=== PATIENT | female | born 1960 | race Caucasian/White ===

== ENCOUNTER → 2016-09-21 | Outpatient (CLI) | payer BC ==
--- NOTE | 2016-09-21 15:30 | US ---
EXAMINATION TYPE: US thyroid st tissue head/neck DATE OF EXAM: 09/21/2016 3:18 PM COMPARISON: EXAMINATION TYPE: US thyroid st tissue head/neck DATE OF EXAM: 09/21/2016 3:18 PM COMPARISON: NONE CLINICAL HISTORY: Neck Nodule E03.9. Patient feels lump superior to thyroid. No mass or obvious abnormality at this area. Targeted ultrasound area of palpable abnormality midline upper neck above thyroid gland show shadowin g from cricoid cartilage. Skin and subcutaneous tissues superficial to this are identified. No worris ome solid or cystic mass or fluid collection is seen on images saved. IMPRESSION: As above
== END | disposition home or self-care (01) ==
LOC: RADUSWWP 14:49
PROVIDERS: ATTEND Family Medicine
DX: E03.9 Hypothyroidism, unspecified (principal)
CPT/HCPCS: 76536

== ENCOUNTER → 2016-10-11 | Outpatient (CLI) | payer BC ==
--- NOTE | 2016-10-11 11:35 | FL ---
EXAMINATION TYPE: FL barium swallow DATE OF EXAM ORDERED: 10/11/2016 11:04 AM HISTORY: Dysphasia. COMPARISON: None. FINDINGS: The patient swallowed barium of these. The esophagus distended normally with air and bariu m without evidence of obstructing or constricting disease. The mucosal pattern throughout the esophag us is normal. There is no significant hiatal hernia or reflux. Limited views of the stomach are unrem arkable. IMPRESSION: NORMAL ESOPHAGRAM.
== END | disposition home or self-care (01) ==
LOC: RADFLWHC 10:08
PROVIDERS: ATTEND Otolaryngology
DX: R13.10 Dysphagia, unspecified (principal)
CPT/HCPCS: 74220

== ENCOUNTER 2017-11-04 23:23 | Emergency (ER) | payer BC ==
[2017-11-04 23:39] LABS: Glucose,Whole Blood 110 mg/dL (75-99)
[2017-11-04] MEDS ORDERED: SODIUM CHLORIDE 0.9% 1,000 ML IV STA ×2 (23:42)
--- NOTE | 2017-11-04 23:44 | ED ---
General Adult HPI - General Chief complaint: Neuro Symptoms/Deficit Stated complaint: Poss TIA Source: patient, family, RN notes reviewed, old records reviewed Mode of arrival: wheelchair Limitations: no limitations - History of Present Illness Initial comments: This is a 57-year-old female the ER for evaluation today. Patient since today for evaluation regards to neurological complaint. Patient has no history of high blood pressure normal cholesterol no diabetes, nonsmoker no prior history of valvular heart or neurological disease. Patient states she has had prior evaluation regarding hard and chest pain, she's had stress test, echocardiogram and carotid Dopplers which were all normal. Patient has no recent travel history no sick contacts occasionally gets migraine headaches but states she has no headache currently. No trauma. Patient states about a month ago as well as tonight patient had some peripheral vision loss or blurriness as well as some slurring of speech or difficulty with speech. The symptoms tonight have resolved. And earlier when she had them last month said resolved without difficulty. Patient currently has no complaints is asymptomatic - Related Data Allergies Allergy/AdvReac Type Severity Reaction Status Date / Time erythromycin base Allergy Rash/Hives Verified 11/04/17 23:34 levofloxacin [From Levaquin] Allergy Hallucinati Verified 11/04/17 23:34 ons Tetanus Vaccines and Toxoid Allergy Unknown Verified 11/04/17 23:34 Childhood Review of Systems ROS Statement: Those systems with pertinent positive or pertinent negative responses have been documented in the HPI. ROS Other: All systems not noted in ROS Statement are negative. Past Medical History Additional Past Medical History / Comment(s): bladder History of Any Multi-Drug Resistant Organisms: None Reported Past Surgical History: Hysterectomy, Orthopedic Surgery Additional Past Surgical History / Comment(s): sinus, foot, bladder suspension Past Psychological History: No Psychological Hx Reported Smoking Status: Never smoker Past Alcohol Use History: Rare Past Drug Use History: None Reported General Exam - General Exam Comments Initial Comments: NIH of 0 Limitations: no limitations General appearance: alert, in no apparent distress Head exam: Present: atraumatic, normocephalic, normal inspection Eye exam: Present: normal appearance, PERRL, EOMI. Absent: scleral icterus, conjunctival injection, periorbital swelling ENT exam: Present: normal exam, mucous membranes moist Neck exam: Present: normal inspection. Absent: tenderness, meningismus, lymphadenopathy Respiratory exam: Present: normal lung sounds bilaterally. Absent: respiratory distress, wheezes, rales, rhonchi, stridor Cardiovascular Exam: Present: regular rate, normal rhythm, normal heart sounds. Absent: systolic murmur, diastolic murmur, rubs, gallop, clicks GI/Abdominal exam: Present: soft, normal bowel sounds. Absent: distended, tenderness, guarding, rebound, rigid Extremities exam: Present: normal inspection, full ROM, normal capillary refill. Absent: tenderness, pedal edema, joint swelling, calf tenderness Back exam: Present: normal inspection Neurological exam: Present: alert, oriented X3, CN II-XII intact Psychiatric exam: Present: normal affect, normal mood Skin exam: Present: warm, dry, intact, normal color. Absent: rash Course Vital Signs 11/04/17 11/04/17 11/05/17 23:28 23:55 00:32 Temperature 98.5 F 99.1 F Pulse Rate 100 95 86 Respiratory 22 18 18 Rate Blood Pressure 163/105 137/55 139/81 O2 Sat by Pulse 100 99 99 Oximetry - Reevaluation(s) Reevaluation #1: 11/04/17 00:43 Patient remains asymptomatic EKG Findings - EKG Comments: EKG Findings:: EKG shows normal sinus rhythm at 97, AL 180, QRS 110, QTc 46 Medical Decision Making - Medical Decision Making 57 female the ER for evaluation. Patient resents today for evaluation regarding TIA like symptoms. Patient is low risk, CT negative. Patient will start taking aspirin discharged home - Lab Data Result diagrams: 11/04/17 23:48 11/04/17 23:48 Lab Results 11/04/17 11/04/17 11/04/17 Range/Units 23:38 23:48 23:48 WBC 9.2 (3.8-10.6) k/uL RBC 5.14 (3.80-5.40) m/uL Hgb 15.4 (11.4-16.0) gm/dL Hct 44.3 (34.0-46.0) % MCV 86.1 (80.0-100.0) fL MCH 29.9 (25.0-35.0) pg MCHC 34.8 (31.0-37.0) g/dL RDW 13.0 (11.5-15.5) % Plt Count 208 (150-450) k/uL Neutrophils % 67 % Lymphocytes % 24 % Monocytes % 5 % Eosinophils % 2 % Basophils % 1 % Neutrophils # 6.2 (1.3-7.7) k/uL Lymphocytes # 2.2 (1.0-4.8) k/uL Monocytes # 0.5 (0-1.0) k/uL Eosinophils # 0.2 (0-0.7) k/uL Basophils # 0.1 (0-0.2) k/uL PT (9.0-12.0) sec INR (<1.2) APTT (22.0-30.0) sec Sodium (137-145) mmol/L Potassium (3.5-5.1) mmol/L Chloride (98-107) mmol/L Carbon Dioxide (22-30) mmol/L Anion Gap mmol/L BUN (7-17) mg/dL Creatinine (0.52-1.04) mg/dL Est GFR (CKD-EPI)AfAm (>60 ml/min/1.73 sqM) Est GFR (CKD-EPI)NonAf (>60 ml/min/1.73 sqM) Glucose (74-99) mg/dL POC Glucose (mg/dL) 110 H (75-99) mg/dL POC Glu Rn Employee Health ID Chesterundanny, Rossy Calcium (8.4-10.2) mg/dL Phosphorus (2.5-4.5) mg/dL Magnesium (1.6-2.3) mg/dL Total Bilirubin (0.2-1.3) mg/dL AST (14-36) U/L ALT (9-52) U/L Alkaline Phosphatase (38-126) U/L Total Creatine Kinase 59 (30-135) U/L CK-MB (CK-2) 0.5 (0.0-2.4) ng/mL CK-MB (CK-2) Rel Index 0.8 Troponin I <0.012 (0.000-0.034) ng/mL Total Protein (6.3-8.2) g/dL Albumin (3.5-5.0) g/dL Serum Alcohol mg/dL 11/04/17 11/04/17 Range/Units 23:48 23:48 WBC (3.8-10.6) k/uL RBC (3.80-5.40) m/uL Hgb (11.4-16.0) gm/dL Hct (34.0-46.0) % MCV (80.0-100.0) fL MCH (25.0-35.0) pg MCHC (31.0-37.0) g/dL RDW (11.5-15.5) % Plt Count (150-450) k/uL Neutrophils % % Lymphocytes % % Monocytes % % Eosinophils % % Basophils % % Neutrophils # (1.3-7.7) k/uL Lymphocytes # (1.0-4.8) k/uL Monocytes # (0-1.0) k/uL Eosinophils # (0-0.7) k/uL Basophils # (0-0.2) k/uL PT 10.4 (9.0-12.0) sec INR 1.1 (<1.2) APTT 27.8 (22.0-30.0) sec Sodium 138 (137-145) mmol/L Potassium 3.8 (3.5-5.1) mmol/L Chloride 102 (98-107) mmol/L Carbon Dioxide 23 (22-30) mmol/L Anion Gap 13 mmol/L BUN 18 H (7-17) mg/dL Creatinine 0.80 (0.52-1.04) mg/dL Est GFR (CKD-EPI)AfAm >90 (>60 ml/min/1.73 sqM) Est GFR (CKD-EPI)NonAf 83 (>60 ml/min/1.73 sqM) Glucose 105 H (74-99) mg/dL POC Glucose (mg/dL) (75-99) mg/dL POC Glu Rn Employee Health ID Calcium 9.6 (8.4-10.2) mg/dL Phosphorus 3.3 (2.5-4.5) mg/dL Magnesium 1.9 (1.6-2.3) mg/dL Total Bilirubin 0.3 (0.2-1.3) mg/dL AST 22 (14-36) U/L ALT 26 (9-52) U/L Alkaline Phosphatase 75 (38-126) U/L Total Creatine Kinase (30-135) U/L CK-MB (CK-2) (0.0-2.4) ng/mL CK-MB (CK-2) Rel Index Troponin I (0.000-0.034) ng/mL Total Protein 7.1 (6.3-8.2) g/dL Albumin 4.6 (3.5-5.0) g/dL Serum Alcohol <10 mg/dL - Radiology Data Radiology results: report reviewed (CT brain CTA negative), image reviewed Disposition Clinical Impression: Transient cerebral ischemia Disposition: HOME SELF-CARE Condition: Good Instructions: Transient Ischemic Attack (ED) Is patient prescribed a controlled substance at d/c from ED?: No Referrals: Hebert Gonzalez DO [Primary Care Provider] - 1-2 days Ailyn Reyes MD [STAFF PHYSICIAN] - 1-2 days
[2017-11-04 23:59] LABS: Basophils # (A) 0.1 k/uL (0-0.2); Basophils % (A) 1 %; Eosinophils # (A) 0.2 k/uL (0-0.7); Eosinophils % (A) 2 %; HCT 44.3 % (34.0-46.0); HGB 15.4 gm/dL (11.4-16.0); Lymphocytes # (A) 2.2 k/uL (1.0-4.8); Lymphocytes % (A) 24 %; MCH 29.9 pg (25.0-35.0); MCHC 34.8 g/dL (31.0-37.0); MCV 86.1 fL (80.0-100.0); Mean Platelet Volume 7.3; Monocytes # (A) 0.5 k/uL (0-1.0); Monocytes % (A) 5 %; Neutrophils # (A) 6.2 k/uL (1.3-7.7); Neutrophils % (A) 67 %; Platelet Count 208 k/uL (150-450); RBC 5.14 m/uL (3.80-5.40); WBC 9.2 k/uL (3.8-10.6)
[2017-11-05 00:08] LABS: INR 1.1 (<1.2); Partial Thromboplastin Time 27.8 sec (22.0-30.0); Prothrombin Time 10.4 sec (9.0-12.0)
[2017-11-05 00:09] VITALS: RESP 18
[2017-11-05 00:15] LABS: ALT 26 U/L (9-52); AST 22 U/L (14-36); Albumin 4.6 g/dL (3.5-5.0); Alcohol <10 mg/dL; Alkaline Phosphatase 75 U/L (38-126); Anion Gap 13 mmol/L; Blood Urea Nitrogen 18 mg/dL (7-17); Calcium 9.6 mg/dL (8.4-10.2); Carbon Dioxide 23 mmol/L (22-30); Chloride 102 mmol/L (98-107); Glucose 105 mg/dL (74-99); Magnesium 1.9 mg/dL (1.6-2.3); Phosphorus 3.3 mg/dL (2.5-4.5); Potassium 3.8 mmol/L (3.5-5.1); Sodium 138 mmol/L (137-145); Total Bilirubin 0.3 mg/dL (0.2-1.3); Total Protein 7.1 g/dL (6.3-8.2)
[2017-11-05 00:29] LABS: Creatine Kinase 59 U/L (30-135)
[2017-11-05 00:34] VITALS: BP 139/81; PULSE 86; TEMP 99.1
--- NOTE | 2017-11-05 00:35 | CT ---
EXAMINATION TYPE: CT brain wo con for TPA DATE OF EXAM: 11/05/2017 COMPARISON: NONE HISTORY: Blurry vision, Speech impairment CT DLP: 1365.90 mGycm Automated exposure control for dose reduction was used. FINDINGS: Multiple axial sections were obtained of the brain with no contrast. Ventricles and sulci appear norm al. There is no mass effect nor midline shift. There is no sign of intracranial hemorrhage. The jose rium is intact. IMPRESSION: NEGATIVE CT SCAN OF THE BRAIN.
[2017-11-05 00:41] LABS: Creatine Kinase MB 0.5 ng/mL (0.0-2.4); Troponin I <0.012 ng/mL (0.000-0.034)
--- NOTE | 2017-11-05 00:54 | CT ---
EXAMINATION TYPE: CT angio head neck DATE OF EXAM: 11/05/2017 HISTORY: Blurry vision, Speech impairment COMPARISON: NONE CT DLP: 1365.90 mGycm. Automated Exposure Control for Dose Reduction was Utilized. TECHNIQUE: CTA scan of the neck is performed with IV Contrast, patient injected with 60 mL of Isovue 370, axial images are obtained, coronal and sagittal reformatted images are reviewed. Three-D recons tructed images are created on an independent workstation and reviewed. FINDINGS: There is normal branching pattern of the great vessels on the aortic arch. There is bilateral patency of the common internal and external carotid arteries. Carotid arteries appear widely patent. There i s no evidence of dissection. There is normal appearance of the vertebral arteries. There is arterial flow in the vertebrobasilar artery system. There is arterial flow in the anterior m iddle and posterior cerebral arteries. I see no evidence of aneurysm or neovascularity. There is no m ass effect. There is no evidence of spasm or stenosis. There is normal contrast opacification of the venous sinuses. I see no pathologic enhancement. IMPRESSION: Normal CT angiogram of the neck. Normal CT angiogram of the brain.
[2017-11-05] MEDS ORDERED: ASPIRIN 81 MG PO STA (01:00)
== END 2017-11-05 01:09 | disposition home or self-care (01) ==
LOC: EC 23:23
DX: G45.9 Transient cerebral ischemic attack, unspecified (principal); R29.700 NIHSS score 0; Z88.1 Allergy status to other antibiotic agents; Z88.7 Allergy status to serum and vaccine
CPT/HCPCS: 36415; 93005; 80053; 82550; 82553; 83735; 84100; 84484; 85025; 85610; 85730; 80320; 70496; 70450; 70498; 99285; 96360; Q9967

== ENCOUNTER → 2020-01-09 | Outpatient (CLI) | payer BC ==
--- NOTE | 2020-01-09 23:26 | MR ---
EXAMINATION TYPE: MR brain and iac wo/w con DATE OF EXAM: 01/09/2020 COMPARISON: None HISTORY: Tinnitus, left hearing loss, vertigo CONTRAST: Standard multiplanar, multisequence MRI departmental protocol utilizing 6.5 mL intravenous Gadavist g adolinium contrast. Multiplanar multiecho imaging of the brain was performed without and subsequently with intravenous co ntrast. There are additional images of the posterior fossa. FINDINGS: Ventricles and sulci are fairly normal. There is no mass effect nor midline shift. There is no sign o f intracranial hemorrhage. On the T2 and FLAIR images there are multiple punctate areas of increased signal at the patino-white matter junction of both cerebral hemispheres. Total number is approximately 20. These measure up to 4 mm. The brainstem is intact. Corpus callosum is intact. Sella turcica appea rs normal. The diffusion images show no evidence of acute infarct. Cerebellum appears normal. The internal auditory canals appear normal. There is normal appearance of the acoustic nerve and vestibular nerves bilaterally. There is no evidence of cerebellopontine angle mass. There is normal contrast enhancement of the venous sinuses. There is no pathologic enhancement. Menin ges appear normal. IMPRESSION: No posterior fossa abnormality. Numerous nonenhancing supratentorial white matter small high signal foci at the patino-white matter axel ction both cerebral hemispheres are nonspecific. These more likely related to small vessel ischemia. These are not in the usual distribution for demyelinating disease.
== END | disposition home or self-care (01) ==
LOC: RADMRIMAIN 05:50
PROVIDERS: ATTEND Nurse Practitioner Family
DX: R90.89 Other abnormal findings on diagnostic imaging of central nervous system (principal); H93.19 Tinnitus, unspecified ear; H90.42 Sensorineural hearing loss, unilateral, left ear, with unrestricted hearing on the contralateral side; R42 Dizziness and giddiness; Z88.7 Allergy status to serum and vaccine
CPT/HCPCS: 70553; A9585

== ENCOUNTER → 2021-01-14 | Outpatient (CLI) | payer BC ==
--- NOTE | 2021-01-14 22:25 | XR ---
EXAMINATION TYPE: XR KUB DATE OF EXAM: 01/14/2021 5:15 PM CLINICAL HISTORY: Flank pain. Hematuria. TECHNIQUE: Supine images of the abdomen and pelvis were obtained COMPARISON: None. FINDINGS: Nonspecific bowel gas pattern. Right upper quadrant round calcified cholelithiasis. A 6 mm density overlying the left renal shadow is seen. Pelvic phleboliths. Lung bases are clear. No acute o sseous abnormality. IMPRESSION: 1. 6 mm density over the left renal shadow may represent nephrolithiasis versus overlying bowel cont ents. 2. Cholelithiasis.
== END | disposition home or self-care (01) ==
LOC: RADXRMAIN 17:01
PROVIDERS: ATTEND Nurse Practitioner Family
DX: K80.20 Calculus of gallbladder without cholecystitis without obstruction (principal); N28.89 Other specified disorders of kidney and ureter
CPT/HCPCS: 74018